=== PATIENT | female | born 1945 | race Caucasian/White ===

== ENCOUNTER 2019-11-21 12:51 | Outpatient (CLI) | payer MEDICARE ==
[2019-11-21] MEDS ORDERED: PYRI100T9 PO (13:31)
[2019-11-21] MEDS ORDERED: RIVA15TA PO (13:48)
[2019-11-21 14:26] LABS: EOSINOPHILS % (AUTO) 1 % (1-7); MD NO
[2019-11-21 14:36] LABS: INTERNATIONAL NORMALIZED RATIO 1.03 (0.93-1.1); PROTHROMBIN TIME 10.9 Seconds (9.6-11.5)
[2019-11-21 14:38] LABS: BASOPHILS # (AUTO) 0.03 x10^3/uL (0-0.1); BASOPHILS % (AUTO) 1 % (0-1); EOSINOPHILS # (AUTO) 0.02 x10^3/uL (0-0.4); LYMPHOCYTES # (AUTO) 1.71 x10^3/uL (1-3.4); LYMPHOCYTES % (AUTO) 40 % (22-44); MEAN CORPUSCULAR HEMOGLOBIN 30.2 pg (27.0-34.8); MEAN CORPUSCULAR HGB CONC 32.8 g/dL (32.4-35.8); MEAN CORPUSCULAR VOLUME 92.2 fL (80-100); MONOCYTES # (AUTO) 0.49 x10^3/uL (0.2-0.8); MONOCYTES % (AUTO) 12 % (2-9); NEUTROPHILS # (AUTO) 1.98 x10^3/uL (1.8-6.8); NEUTROPHILS % (AUTO) 47 % (42-75); PLATELET COUNT 263 x10^3/uL (130-400); RED BLOOD COUNT 3.95 x10^6/uL (3.82-5.3); RED CELL DISTRIBUTION WIDTH 18.1 % (9.6-15.2)
[2019-11-21 14:48] LABS: ALANINE AMINOTRANSFERASE 15 U/L (12-78); ALBUMIN 3.4 g/dL (3.4-5.0); ANION GAP 9 mmol/L (5-15); CALCIUM 9.2 mg/dL (8.5-10.1); CHLORIDE 108 mmol/L (98-107); CREATININE 0.68 mg/dL (0.55-1.02)
[2019-11-21 14:50] LABS: ALKALINE PHOSPHATASE 75 U/L (45-117); BILIRUBIN,TOTAL 0.4 mg/dL (0.2-1.0); TOTAL PROTEIN 7.3 g/dL (6.4-8.2)
== END 2019-11-21 23:59 | disposition home or self-care (01) ==
LOC: STAR 12:51
PROVIDERS: ATTEND Specialist
DX: Z01.818 Encounter for other preprocedural examination (principal); C56.9 Malignant neoplasm of unspecified ovary
CPT/HCPCS: 36415; 71046; 80053; 85025; 85610; 85730; 93005

== ENCOUNTER 2019-11-24 10:18 | Day surgery (SDC) | payer MEDICARE ==
[~2019-11-24] VITALS: Ht 167.6 cm; Wt 78.5 kg
[~2019-11-24 10:18] MED LIST: PYRI100T9 PO; RIVA15TA PO
[2019-11-24] MEDS ORDERED: SODIUM CHLORIDE 0.9% 1,000 ML IV SCH (10:51)
[2019-11-24 10:53] VITALS: BP 157/100
[2019-11-24] MEDS ORDERED: LIDOCAINE 1%, 20ML ONE (11:53)
[2019-11-24] MEDS ORDERED: VISIPAQUE 270 MG/ML, 50ML BOTTLE ONE (13:00)
[2019-12-02] MEDS ORDERED: RIVA20TA PO (09:16)
[2019-12-02] MEDS ORDERED: ONDA4TAB7 PO (09:24)
[2019-12-02] MEDS ORDERED: OXYC-302 PO (09:24)
== END 2019-11-24 14:30 | disposition home or self-care (01) ==
LOC: OUT 10:18
PROVIDERS: ATTEND Specialist
DX: C56.9 Malignant neoplasm of unspecified ovary (principal); I10 Essential (primary) hypertension; Z86.711 Personal history of pulmonary embolism; Z86.718 Personal history of other venous thrombosis and embolism
CPT/HCPCS: 37191; 99156; 99157; C1769; C1880; C1894; Q9966; 76937

== ENCOUNTER → 2020-01-14 | Outpatient (CLI) | payer MEDICARE ==
[~2020-01-14] MED LIST changes: +OMNIPAQUE 350 MG/ML, 100ML BOTTLE ONE; +ONDA4TAB7 PO; +OXYC-302 PO; +RIVA20TA PO
== END | disposition home or self-care (01) ==
LOC: CFH 11:23
PROVIDERS: ATTEND Specialist
DX: C56.9 Malignant neoplasm of unspecified ovary (principal); N28.1 Cyst of kidney, acquired; M84.48XA Pathological fracture, other site, initial encounter for fracture; M85.88 Other specified disorders of bone density and structure, other site
CPT/HCPCS: 71260; 74177; Q9967

== ENCOUNTER 2020-04-12 12:53 | Outpatient (CLI) | payer MEDICARE ==
[~2020-04-12 12:53] MED LIST changes: -OMNIPAQUE 350 MG/ML, 100ML BOTTLE ONE
[2020-04-12] MEDS ORDERED: OMNIPAQUE 350 MG/ML, 100ML BOTTLE ONE (14:30)
== END 2020-04-12 23:59 | disposition home or self-care (01) ==
LOC: CFH 12:53
PROVIDERS: ATTEND Nurse Practitioner Acute Care
DX: Z51.11 Encounter for antineoplastic chemotherapy (principal); C56.9 Malignant neoplasm of unspecified ovary; K43.9 Ventral hernia without obstruction or gangrene; G95.29 Other cord compression; M43.8X6 Other specified deforming dorsopathies, lumbar region
CPT/HCPCS: 71260; 74177; 82565; Q9967